=== PATIENT | male | born 1960 | race Caucasian/White ===

== ENCOUNTER 2018-04-29 15:55 | Inpatient (IN) ==
[2018-04-29] MEDS ORDERED: Sod Chloride 0.9% Inj 1,000 ML IV.SIG ONE (16:09)
[2018-04-29] MEDS ORDERED: Lidocaine 1% Inj 50 ML Vial INFILTRATN ONE (16:10)
[2018-04-29] MEDS ORDERED: Tetanus/Diphtheria Toxoid Adult Vaccine Inj 0.5 ML Vial IM ONE (16:10)
--- NOTE | 2018-04-29 16:42 | ED ---
HPI General Chief Complaint: Fall Stated Complaint: Fall Time Seen by Provider: 04/29/18 16:09 Source: patient Mode of arrival: EMS Limitations: no limitations History of Present Illness HPI Narrative: 58-year-old male with PMH of HTN, CVA with residual speech difficulties presents to the ED via EMS for evaluation after fall x2. Patient states that he was going to lunch around 1 pm, turned to go to the bathroom, leg slipped out from under him and he fell onto his right hip. He denies hitting his head or loss of consciousness. He was able to ambulate and had lunch with a friend. He endorses having a few beers while at lunch. He states that when he stood up and took a few steps to leave the restaurant he suddenly "hit the ground." He endorses hitting his head and momentary loss of consciousness. On presentation he is alert, oriented. He denies headache, dizziness, vision changes, difficulties breathing, malocclusion, back pain, neck pain, chest pain, shortness of breath, abdominal pain. He denies previous injury to the right hip. He endorses compliance with his antihypertensive medications. He denies use of blood thinners. Related Data Home Medications Medication Instructions Recorded Confirmed amlodipine 5 mg PO DAILY 04/29/18 04/29/18 losartan-hydrochlorothiazide 1 tab PO DAILY 04/29/18 04/29/18 metoprolol tartrate 25 mg PO BID 04/29/18 04/29/18 potassium chloride 20 meq PO BID 04/29/18 04/29/18 Allergies Allergy/AdvReac Type Severity Reaction Status Date / Time No Known Allergies Allergy Verified 04/29/18 16:03 Review of Systems ROS: all other systems reviewed are negative [facility] Medical History Medical History CVA (cerebral vascular accident) (Acute) Hypertension (Acute) Rt facial numbness (Acute) Surgical History Surgical History H/O arthroscopic knee surgery (Acute) Family History Family History Other Hypertension Social History Social History Substance History: No History of Abuse Second Hand Smoke Exposure: No Smoking Status: Current some day smoker Tobacco Type: Cigars How Often Do You Have a Drink Containing Alcohol: 4 or more times a week Recent Travel in [facility] within the Last 8 Weeks: No Recent Out of Country Travel within the Last 8 Weeks: No Immunization History Tetanus Immunization: >5 Years Exam Narrative Exam Narrative: GENERAL: Well-nourished, well-developed white male in no acute distress. Sitting up in the stretcher in no acute distress. SKIN: Warm and dry. There is a 3 cm laceration below the midline mandible. No active bleeding. Other thorough evaluation reveals no edema, ecchymosis, abrasion, or laceration of the skin. HEAD: Normocephalic. Atraumatic. No raccoon eyes or schulte sign. No tenderness to palpation of the skull. No bony step-offs. No malocclusion of the teeth. EYES: No scleral icterus. No injection or drainage. PERRLA. EOMI. ENT: Pearly hernandez tympanic membranes bilaterally. Nasal mucosa is moist. Oropharynx without erythema, edema or exudate. NECK: Supple, trachea midline. No JVD or lymphadenopathy. No midline tenderness to palpation. Patient retains full, active, painless range of motion of the neck. CARDIOVASCULAR: Regular rate and rhythm without murmurs, gallops, or rubs. 2+ DP and radial pulses bilaterally. RESPIRATORY: Breath sounds clear and equal bilaterally. No accessory muscle use. GASTROINTESTINAL: Abdomen soft, non-tender, nondistended. + Bowel sounds FOCUSED RIGHT LOWER EXTREMITY EXAM: Palpable distal pulses. Tender to palpation of the anterolateral aspect of the right hip. No pain elicited with internal/external rotation. No foreshortening. Patient is able to bend the knee to approximately 30 degrees. Neurovascularly intact distally. MUSCULOSKELETAL: No cyanosis, or edema. No other tenderness to palpation or limitations to range of motion of the joints of the upper and lower extremities bilaterally. NEUROLOGICAL: Awake and alert. Cranial nerves II through XII intact. Motor and sensory grossly within normal limits. 5/5 muscle strength in all muscle groups. Normal speech. BACK: Nontender without obvious deformity. No CVA tenderness. No midline tenderness. Procedures Laceration Laceration 1: Site: face Size (cm): 4 Description: linear Depth: simple, single layer Anesthetic used: lidocaine 1% Anesthesia technique:: local infiltration Amount (mL): 5 Pre-repair:: wound explored, irrigated extensively and deep structures intact Skin layer closed with: prolene Size (cm): 4-0 Number of sutures:: 4 Technique:: simple, interrupted Course Initial Documented Vital Signs Temperature 98.1 F 04/29/18 16:08 Pulse Rate 75 04/29/18 16:08 Respiratory Rate 13 04/29/18 16:08 Blood Pressure 147/73 H 04/29/18 16:08 Pulse Oximetry 100 04/29/18 16:08 Last Documented Vital Signs Temperature 98.1 F 04/29/18 16:08 Pulse Rate 75 04/29/18 18:17 Respiratory Rate 19 04/29/18 18:17 Blood Pressure 154/76 H 04/29/18 18:17 Pulse Oximetry 98 04/29/18 18:17 Medical Decision Making DEMARCO Attestation DEMARCO supervised visit: Yes Attestation: I, Dr. Goff, have reviewed the advance practice practitioner's documentation and am in agreement, met with the patient face to face, made the diagnosis, and the medical decision making was done by me. *My assessment and Findings: Patient is a 58 year old male who comes in complaining of right hip pain after a fall today. He fell twice, the second fall, he blacked out. He denies chest pain or SOB. Exam shows laceration to the chin. Tender to palpation of the right hip. Lungs CTA, heart RRR. XR shows hip fracture. Patient admitted for surgical repair. MDM Narrative Medical decision making narrative: 58-year-old male with PMH of HTN, CVA with residual speech difficulties and right-sided facial paresthesias presents the ED via EMS for evaluation after a fall onto the right hip. Patient did hit his head and had momentary loss of consciousness. On presentation he is a and O x3. He complains of hip pain but denies dizziness, vision changes, nausea or vomiting. Physical exam reveals laceration of the midline chin just below the mandible, no active bleeding. The right hip is tender to palpation of the anterior lateral aspect, no pain elicited with internal/external rotation. No foreshortening noted. Neurovascular intact distally. Tetanus immunization was updated. Laceration repair was performed. CT of the brain with no acute findings. X-ray of the hip reveals subcapital fracture. Discussed the results of the workup with the patient as well as the need for orthopedic intervention. Patient is agreeable to admission. I spoke with Dr. Hill, on-call orthopedist. She agrees to accept the patient. I spoke with Dr. menard who agrees to accept the patient to the medicine service. Please see Orth O and medicine notes for disposition. Medical Screen Exam Complete: Yes Emergency Medical Condition: Yes Differential Diagnosis Differential Diagnosis: Fall versus closed head injury versus chin laceration versus ICH versus metabolic derangement versus ACS versus hip fracture versus musculoskeletal pain versus other Lab Data Result diagrams: 04/29/18 16:15 04/29/18 16:15 Lab Results 04/29/18 04/29/18 04/29/18 Range/Units 16:15 16:15 16:15 WBC 7.8 (4.0-11.0) th/mm3 RBC 4.27 L (4.50-5.90) mil/mm3 Hgb 14.1 (13.0-17.0) gm/dL Hct 40.5 (39.0-51.0) % MCV 94.7 (80.0-100.0) fL MCH 33.0 (27.0-34.0) pg MCHC 34.8 (32.0-36.0) % RDW 14.1 (11.6-17.2) % Plt Count 284 (150-450) th/mm3 MPV 7.5 (7.0-11.0) fL Neut % (Auto) 52.8 (16.0-70.0) % Lymph % (Auto) 31.6 (9.0-44.0) % [place] % (Auto) 12.4 H (0.0-8.0) % Eos % (Auto) 2.1 (0.0-4.0) % Baso % (Auto) 1.1 (0.0-2.0) % Neut # (Auto) 4.1 (1.8-7.7) th/mm3 Lymph # (Auto) 2.5 (1.0-4.8) th/mm3 [place] # (Auto) 1.0 H (0.0-0.9) th/mm3 Eos # (Auto) 0.2 (0.0-0.4) th/mm3 Baso # (Auto) 0.1 (0.0-0.2) th/mm3 WBC Differential . Differential Comment Auto diff final PT 10.4 (9.8-11.6) sec INR 1.0 Ratio Sodium 141 (136-145) meq/L Potassium 3.7 (3.5-5.1) meq/L Chloride 106 (98-107) meq/L Carbon Dioxide 26.1 (21.0-32.0) meq/L Anion Gap 9 (5-15) meq/L BUN 13 (7-18) mg/dL Creatinine 1.65 H (0.60-1.30) mg/dL Estimated GFR 43 L (>89) mL/min Random Glucose 109 H (74-106) mg/dL Calcium 8.3 L (8.5-10.1) mg/dL Troponin I Less than 0.02 L (0.02-0.05) ng/mL Serum Alcohol (0-5) mg/dL 04/29/18 Range/Units 16:15 WBC (4.0-11.0) th/mm3 RBC (4.50-5.90) mil/mm3 Hgb (13.0-17.0) gm/dL Hct (39.0-51.0) % MCV (80.0-100.0) fL MCH (27.0-34.0) pg MCHC (32.0-36.0) % RDW (11.6-17.2) % Plt Count (150-450) th/mm3 MPV (7.0-11.0) fL Neut % (Auto) (16.0-70.0) % Lymph % (Auto) (9.0-44.0) % [place] % (Auto) (0.0-8.0) % Eos % (Auto) (0.0-4.0) % Baso % (Auto) (0.0-2.0) % Neut # (Auto) (1.8-7.7) th/mm3 Lymph # (Auto) (1.0-4.8) th/mm3 [place] # (Auto) (0.0-0.9) th/mm3 Eos # (Auto) (0.0-0.4) th/mm3 Baso # (Auto) (0.0-0.2) th/mm3 WBC Differential Differential Comment PT (9.8-11.6) sec INR Ratio Sodium (136-145) meq/L Potassium (3.5-5.1) meq/L Chloride (98-107) meq/L Carbon Dioxide (21.0-32.0) meq/L Anion Gap (5-15) meq/L BUN (7-18) mg/dL Creatinine (0.60-1.30) mg/dL Estimated GFR (>89) mL/min Random Glucose (74-106) mg/dL Calcium (8.5-10.1) mg/dL Troponin I (0.02-0.05) ng/mL Serum Alcohol 153 H (0-5) mg/dL Imaging Data Radiologist's impression: Head CT 04/29/18 16:09 CONCLUSION: 1. No acute intracranial abnormality. 2. 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 . Hip X-Ray 04/29/18 16:10 CONCLUSION: Subcapital fracture of the right hip Discharge Plan Discharge Disposition Patient Disposition: 30 Still Patient Physicians Team ED Provider: Bailee Goff ED Midlevel Provider: Magalys Tristan Primary Care Provider: Primary Care Aydee,Lea Attending Provider: Raji Issa Other Providers: Angy Hill Status ED Status: Admitted Patient
[2018-04-29 16:43] LABS: Baso # (Auto) 0.1 th/mm3 (0.0-0.2); Baso % (Auto) 1.1 % (0.0-2.0); Eos # (Auto) 0.2 th/mm3 (0.0-0.4); Eos % (Auto) 2.1 % (0.0-4.0); Hematocrit 40.5 % (39.0-51.0); Hemoglobin 14.1 gm/dL (13.0-17.0); Lymph # (Auto) 2.5 th/mm3 (1.0-4.8); Lymph % (Auto) 31.6 % (9.0-44.0); Mean Corpuscular HGB Conc 34.8 % (32.0-36.0); Mean Corpuscular Volume 94.7 fL (80.0-100.0); Mean Platelet Volume 7.5 fL (7.0-11.0); Mono % (Auto) 12.4 % (0.0-8.0); Neut # (Auto) 4.1 th/mm3 (1.8-7.7); Neut % (Auto) 52.8 % (16.0-70.0); Platelet Count 284 th/mm3 (150-450); Red Blood Count 4.27 mil/mm3 (4.50-5.90); Red Cell Distribution Width 14.1 % (11.6-17.2); White Blood Count 7.8 th/mm3 (4.0-11.0)
--- NOTE | 2018-04-29 17:05 | XR ---
EXAM DATE: 04/29/2018 4:48 PM EDT AGE/SEX: 58 years / Male INDICATIONS: Patient fell twice today. CLINICAL DATA: This is the patient's initial encounter. Patient reports that signs and symptoms have been present for 1 day and indicates a pain score of 4/10. MEDICAL/SURGICAL HISTORY: None. None. COMPARISON: No prior exams available for comparison. FINDINGS: Subcapital fracture of the right hip. Femoral acetabular articulation is preserved. CONCLUSION: Subcapital fracture of the right hip Electronically signed by: Chris Branham MD 04/29/2018 5:04 PM EDT
--- NOTE | 2018-04-29 17:05 | CT ---
EXAM DATE: 04/29/2018 5:00 PM EDT AGE/SEX: 58 years / Male INDICATIONS: Trauma, fall, laceration to chin. CLINICAL DATA: This is the patient's initial encounter. Patient reports that signs and symptoms have been present for 1 day and indicates a pain score of 9/10. MEDICAL/SURGICAL HISTORY: Cerebrovascular disease. Hypertension. None. RADIATION DOSE: 41.17 CTDI (mGy) COMPARISON: No prior exams available for comparison. TECHNIQUE: CT of the head without contrast. Using automated exposure control and adjustment of the mA and/or kV according to patient size, radiation dose was kept as low as reasonably achievable to ob tain optimal diagnostic quality images. DICOM format image data is available electronically for revi ew and comparison. FINDINGS: Cerebrum: The ventricles are normal for age. No evidence of midline shift, mass lesion, hemorrhage or acute infarction. No extraaxial fluid collections are seen. Posterior Fossa: Cystic structure in the right posterior fossa likely negative cisterna magna or arac hnoid cyst The cerebellum and brainstem are intact. The 4th ventricle is midline. The cerebellopon jimi angle is unremarkable. Extracranial: The visualized portion of the orbits is intact. Skull: The calvaria is intact. No evidence of skull fracture. CONCLUSION: 1. No acute intracranial abnormality. 2. 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 . Electronically signed by: Raji Blackburn MD 04/29/2018 5:04 PM EDT
[2018-04-29 17:08] LABS: Anion Gap 9 meq/L (5-15); Blood Urea Nitrogen 13 mg/dL (7-18); Calcium 8.3 mg/dL (8.5-10.1); Carbon Dioxide 26.1 meq/L (21.0-32.0); Chloride 106 meq/L (98-107); Glomerular Filtration Rate 43 mL/min (>89); Glucose,Random 109 mg/dL (74-106); Potassium 3.7 meq/L (3.5-5.1); Sodium 141 meq/L (136-145)
[2018-04-29 17:13] LABS: Prothrombin Time 10.4 sec (9.8-11.6)
[2018-04-29] MEDS ORDERED: Acetaminophen 325 MG Tablet PO PRN (17:48)
[2018-04-29] MEDS ORDERED: Morphine Sulfate Inj 2 MG/ML Vial IV.PUSH PRN (17:51)
[2018-04-29] MEDS ORDERED: Naloxone Inj 0.4 MG/ML Vial IV.PUSH PRN (17:51)
[2018-04-29] MEDS ORDERED: LORazepam 1 MG Tablet PO PRN (17:52)
[2018-04-29] MEDS ORDERED: Haloperidol Inj 5 MG/ML Ampul IV.PUSH PRN ×2 (17:52→19:15)
--- NOTE | 2018-04-29 18:04 | P.HP ---
History of Present Illness Primary Care Physician: No Primary Care Physician Chief Complaint: Right hip pain History of Present Illness: 58-year-old man with a past medical history of hypertension, CVA with residual speech difficulties was brought to the ED by EMS for evaluation of right status post mechanical falls x2, which happened a local restaurant today. Patient states, he has gone out to eat and while in a restaurant decided to walk to the bathroom when his leg slipped out from under him and he fell onto his right hip. The pain at a time was rated over 4 in intensity however patient was able to get back to his seat and proceeded with lunch which lasted over one hour and a half. However as patient was getting ready to step out against slipped and fallen on his right side. For atrial dose for patient denies any head trauma or loss of consciousness. When patient was brought to the ED, and AP x-rays order from subcapital fracture of the right hip for which orthopedic surgery has been consulted. Abnormal lab include alcohol of 153, however patient denies any significant history of alcohol abuse. Creatinine slightly elevated to 1.65. Otherwise patient denies any chest pain or shortness of breath. He has no GI bleed. Inpatient Certification: I certify that the inpatient services were ordered in accordance with Medicare regulations governing the order. This includes certification that hospital inpatient services are reasonable and necessary and in the case of services not specified as inpatient-only under 42 CFR 419.22(n), that they are appropriately provided as inpatient services in accordance to with the 2-midnight benchmark under 43 CFR 412.3(e) Estimated Total Length of Stay (Days): 2 Plans for Post Hospital Care: SNF Review of Systems All other systems reviewed negative except as stated in HPI PMFSH - History History Provided By: Patient - Medical History Medical History: Medical History (Last Reviewed 04/30/18 @ 11:40 by Terrell Valenzuela) CVA (cerebral vascular accident) Hypertension Rt facial numbness - Surgical History Surgical History: Surgical History (Last Updated 04/29/18 @ 17:59 by Raji Issa MD) H/O arthroscopic knee surgery - Family History Family History: Family History (Last Updated 04/29/18 @ 18:00 by Raji Issa MD) Other Hypertension - Tobacco History Second Hand Smoke Exposure: No Tobacco Use In Past 30 Days: No Smoking Status: Current some day smoker Tobacco Type: Cigars - Alcohol History How Often Do You Have a Drink Containing Alcohol: 4 or more times a week - Substance Use History Substance History: No History of Abuse - Travel History Recent Travel in the [place] Within the Last 8 Weeks: No Recent Travel Out of the Country Within the Last 8 Weeks: No - Immunization History Tetanus Immunization: >5 Years Medications and Allergies Active Medications: Active Medications Sodium Chloride (Ns Flush) 2 ml IV.FLUSH PRN PRN PRN Reason: FLUSH AFTER USING IV ACCESS Allergies Allergy/AdvReac Type Severity Reaction Status Date / Time No Known Allergies Allergy Verified 04/29/18 16:03 Home Medications Medication Instructions Recorded Confirmed Type amlodipine 5 mg PO DAILY 04/29/18 04/29/18 History losartan-hydrochlorothiazide 1 tab PO DAILY 04/29/18 04/29/18 History metoprolol tartrate 25 mg PO BID 04/29/18 04/29/18 History potassium chloride 20 meq PO BID 04/29/18 04/29/18 History Exam Vital signs: Vital Signs 04/29/18 16:08 04/29/18 16:22 Temperature 98.1 F Pulse Rate 75 Respiratory Rate 13 Blood Pressure 147/73 H Pulse Oximetry 100 99 Intake & Output 04/28/18 04/29/18 04/29/18 18:59 06:59 18:59 Intake Total 1000 / 1000 Balance 1000 / 1000 Weight 92.986 kg Intake: IV 1000 / 1000 NS Inj 1,000 ML @ Wide Open IV. 1000 / 1000 SIG BOLUS ONE Rx#:[id number] Narrative: GENERAL: NAD SKIN: Warm and dry. HEAD: Atraumatic. Normocephalic. EYES: Pupils equal and round. No scleral icterus. No injection or drainage. ENT: No nasal bleeding or discharge. Mucous membranes pink and moist. NECK: Trachea midline. No JVD. CARDIOVASCULAR: Regular rate and rhythm. RESPIRATORY: No accessory muscle use. Clear to auscultation. Breath sounds equal bilaterally. GASTROINTESTINAL: Abdomen soft, non-tender, nondistended. Hepatic and splenic margins not palpable. MUSCULOSKELETAL: Extremities without clubbing, cyanosis, or edema. No obvious deformities. NEUROLOGICAL: Awake and alert. No obvious cranial nerve deficits. Motor grossly within normal limits. Five out of 5 muscle strength in the left arms and legs. Limited ROM RLE, which is internally rotated. PSYCHIATRIC: Appropriate mood and affect; insight and judgment normal. Results - Labs CBC & Chem 7: 04/30/18 04:15 04/30/18 04:15 Labs: Laboratory Results - last 24 hr 04/29/18 04/29/18 04/29/18 16:15 16:15 16:15 WBC 7.8 RBC 4.27 L Hgb 14.1 Hct 40.5 MCV 94.7 MCH 33.0 MCHC 34.8 RDW 14.1 Plt Count 284 MPV 7.5 Neut % (Auto) 52.8 Lymph % (Auto) 31.6 [place] % (Auto) 12.4 H Eos % (Auto) 2.1 Baso % (Auto) 1.1 Neut # (Auto) 4.1 Lymph # (Auto) 2.5 [place] # (Auto) 1.0 H Eos # (Auto) 0.2 Baso # (Auto) 0.1 WBC Differential . Differential Comment Auto diff final PT 10.4 INR 1.0 Sodium 141 Potassium 3.7 Chloride 106 Carbon Dioxide 26.1 Anion Gap 9 BUN 13 Creatinine 1.65 H Estimated GFR 43 L Random Glucose 109 H Calcium 8.3 L Troponin I Less than 0.02 L Serum Alcohol 04/29/18 16:15 WBC RBC Hgb Hct MCV MCH MCHC RDW Plt Count MPV Neut % (Auto) Lymph % (Auto) [place] % (Auto) Eos % (Auto) Baso % (Auto) Neut # (Auto) Lymph # (Auto) [place] # (Auto) Eos # (Auto) Baso # (Auto) WBC Differential Differential Comment PT INR Sodium Potassium Chloride Carbon Dioxide Anion Gap BUN Creatinine Estimated GFR Random Glucose Calcium Troponin I Serum Alcohol 153 H - Imaging Impressions Head CT 04/29/18 16:09 CONCLUSION: 1. No acute intracranial abnormality. 2. 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 . Hip X-Ray 04/29/18 16:10 CONCLUSION: Subcapital fracture of the right hip Caprini VTE Risk Assessment Caprini VTE Risk Assessment: No/Low Risk (score <= 1) Caprini Risk Assessment Model: Point Value = 1 Point Value = 2 Point Value = 3 Point Value = 5 Age 41-60 Minor surgery BMI > 25 kg/m2 Swollen legs Varicose veins or History of unexplained or recurrent spontaneous Oral contraceptives or hormone replacement Sepsis (< 1 month) Serious lung disease, including pneumonia (< 1 month) Abnormal pulmonary function Acute myocardial infarction Congestive heart failure (< 1 month) History of inflammatory bowel disease Medical patient at bed rest Age 61-74 Arthroscopic surgery Major open surgery (> 45 min) Laparoscopic surgery (> 45 min) Malignancy Confined to bed (> 72 hours) Immobilizing plaster cast Central venous access Age >= 75 History of VTE Family history of VTE Factor V Leiden Prothrombin [id number] Lupus anticoagulant Anticardiolipin antibodies Elevated serum homocysteine Heparin-induced thrombocytopenia Other congenital or acquired thrombophilia Stroke (< 1 month) Elective arthroplasty Hip, pelvis, or leg fracture Acute spinal cord injury (< 1 month) Prophylaxis Regimen: Total Risk Factor Score Risk Level Prophylaxis Regimen 0-1 Low Early ambulation 2 Moderate Order ONE of the following: *Sequential Compression Device (SCD) *Heparin 5000 units SQ BID 3-4 Higher Order ONE of the following medications: *Heparin 5000 units SQ TID *Enoxaparin/Lovenox 40 mg SQ daily (WT < 150 kg, CrCl > 30 mL/min) *Enoxaparin/Lovenox 30 mg SQ daily (WT < 150 kg, CrCl > 10-29 mL/min) *Enoxaparin/Lovenox 30 mg SQ BID (WT < 150 kg, CrCl > 30 mL/min) AND/OR *Sequential Compression Device (SCD) 5 or more Highest Order ONE of the following medications: *Heparin 5000 units SQ TID (Preferred with Epidurals) *Enoxaparin/Lovenox 40 mg SQ daily (WT < 150 kg, CrCl > 30 mL/min) *Enoxaparin/Lovenox 30 mg SQ daily (WT < 150 kg, CrCl > 10-29 mL/min) *Enoxaparin/Lovenox 30 mg SQ BID (WT < 150 kg, CrCl > 30 mL/min) AND *Sequential Compression Device (SCD) Assessment and Plan - Plan 58-year-old man with Right hip fracture Hip x-ray noted and reviewed by me with finding of subcapital fracture of the right hip Place right lower extremity in traction Orthopedic surgery has been consulted Pain management accordingly with parenteral meds DVT prophylaxis postprocedure per orthopedic surgery PT consult postprocedure for eval and treat Mechanical fall Head CT noted and reviewed by me without any intracranial abnormalities Place Fall precautions Elevated alcohol level Although, patient denies any history of alcohol abuse, will start CIWA protocol Patient was extensively counseled against alcohol cessation History of hypertension Will resume Norvasc, beta-arik and hold HCTZ-lisinopril Acute renal injury Prerenal Gentle IV fluid hydration, monitor BUN and creatinine History of CVA Chronic DVT prophylaxis: Postprocedure per orthopedic surgery
[2018-04-29] MEDS: Metoprolol Tartrate 25 MG Tablet PO SCH (21:50)
[2018-04-30] MEDS ORDERED: Chlorhexidine Gluconate 2% 1 Pack (2 Cloths) TOPICAL ONE (05:03)
[2018-04-30 05:07] LABS: Baso # (Auto) 0.1 th/mm3 (0.0-0.2); Baso % (Auto) 0.7 % (0.0-2.0); Eos # (Auto) 0.1 th/mm3 (0.0-0.4); Eos % (Auto) 0.9 % (0.0-4.0); Hematocrit 39.3 % (39.0-51.0); Hemoglobin 13.3 gm/dL (13.0-17.0); Mean Corpuscular HGB Conc 33.9 % (32.0-36.0); Mean Corpuscular Hemoglobin 32.2 pg (27.0-34.0); Mean Corpuscular Volume 95.1 fL (80.0-100.0); Mean Platelet Volume 7.4 fL (7.0-11.0); Mono # (Auto) 1.1 th/mm3 (0.0-0.9); Mono % (Auto) 11.9 % (0.0-8.0); Neut # (Auto) 5.9 th/mm3 (1.8-7.7); Neut % (Auto) 64.5 % (16.0-70.0); Platelet Count 231 th/mm3 (150-450); Red Blood Count 4.13 mil/mm3 (4.50-5.90); White Blood Count 9.1 th/mm3 (4.0-11.0)
[2018-04-30 05:37] LABS: Alanine Aminotransferase 25 U/L (12-78); Albumin 3.3 g/dL (3.4-5.0); Anion Gap 10 meq/L (5-15); Aspartate Aminotransferase 27 U/L (15-37); Blood Urea Nitrogen 11 mg/dL (7-18); Calcium 8.5 mg/dL (8.5-10.1); Carbon Dioxide 24.9 meq/L (21.0-32.0); Chloride 109 meq/L (98-107); Glomerular Filtration Rate 61 mL/min (>89); Glucose,Random 93 mg/dL (74-106); Potassium 3.8 meq/L (3.5-5.1); Sodium 144 meq/L (136-145)
[2018-04-30 05:39] LABS: Alkaline Phosphatase 54 U/L (45-117); Total Protein 6.4 g/dL (6.4-8.2)
[2018-04-30] MEDS ORDERED: Sodium Chlor 0.9% Inj 500 ML IV.SIG SCH (06:00)
[2018-04-30] MEDS: Metoprolol Tartrate 25 MG Tablet PO SCH ×2 (08:00→20:18)
[2018-04-30] MEDS: amLODIPine 5 MG Tablet PO SCH (08:00)
--- NOTE | 2018-04-30 08:19 | P.PNOP ---
Subjective Interval history: Ric was in a restaurant when he slipped and fell and landed directly onto his right hip. He hobbled off to the bathroom and came back and completed his meal. After the meal he went to stand up and had significant pain and apparently had a syncopal episode in which he fell and hit the chair well with his chin. When he came to he was unable to ambulate and bear weight. He has no other orthopedic complaints other than his right hip <JocelyneTerrell - Last Filed: 04/30/18 08:14> Physical Exam Vital signs: Vital Signs 04/29/18 16:08 04/29/18 16:22 04/29/18 18:17 Temperature 98.1 F Pulse Rate 75 75 Respiratory Rate 13 19 Blood Pressure 147/73 H 154/76 H Pulse Oximetry 100 99 98 04/29/18 18:54 04/29/18 20:00 04/29/18 20:32 Temperature 99.5 F 98.7 F Pulse Rate 93 H 93 H Respiratory Rate 18 20 20 Blood Pressure 182/86 H 164/82 H Pulse Oximetry 100 96 04/30/18 00:00 04/30/18 00:30 04/30/18 04:00 Temperature 98.6 F 98.9 F Pulse Rate 85 97 H Respiratory Rate 20 17 20 Blood Pressure 158/86 H 171/82 H Pulse Oximetry 96 97 Intake & Output 04/29/18 04/30/18 04/30/18 18:59 06:59 18:59 Intake Total 1000 / 1000 0 / 0 Output Total 1999 Balance 1000 / 1000 -1999 Weight 92.986 kg 93 kg Intake: IV 1000 / 1000 NS Inj 1,000 ML @ Wide Open IV. 1000 / 1000 SIG BOLUS ONE Rx#:[id number] Oral 0 / 0 Output: Urine 1999 Other: Date of Last Bowel Movement 04/28/18 Weight On Admission 92.986 kg Narrative: Ric is a 58-year-old male is well-nourished well-developed in no acute distress. He is alert and oriented to person place and time. Right lower extremity: Pain to palpation of hip. Pain with any movement of the hip. skin is intact. No pain with knee or ankle range of motion. He has active dorsiflexion and plantarflexion of the foot. Bilateral upper extremities: Full range of motion neurovascular intact left lower extremity: Full range of motion and neurovascularly intact <Terrell Casanova - Last Filed: 04/30/18 08:14> Vital signs: Vital Signs 04/29/18 16:08 04/29/18 16:22 04/29/18 18:17 Temperature 98.1 F Pulse Rate 75 75 Respiratory Rate 13 19 Blood Pressure 147/73 H 154/76 H Pulse Oximetry 100 99 98 04/29/18 18:54 04/29/18 20:00 04/29/18 20:32 Temperature 99.5 F 98.7 F Pulse Rate 93 H 93 H Respiratory Rate 18 20 20 Blood Pressure 182/86 H 164/82 H Pulse Oximetry 100 96 04/30/18 00:00 04/30/18 00:30 04/30/18 04:00 Temperature 98.6 F 98.9 F Pulse Rate 85 97 H Respiratory Rate 20 17 20 Blood Pressure 158/86 H 171/82 H Pulse Oximetry 96 97 04/30/18 08:00 Temperature 98.7 F Pulse Rate 74 Respiratory Rate 20 Blood Pressure 175/86 H Pulse Oximetry 98 Intake & Output 04/29/18 04/30/18 04/30/18 18:59 06:59 18:59 Intake Total 1000 / 1000 0 / 0 Output Total 1999 Balance 1000 / 1000 -1999 Weight 92.986 kg 93 kg Intake: IV 1000 / 1000 NS Inj 1,000 ML @ Wide Open IV. 1000 / 1000 SIG BOLUS ONE Rx#:[id number] Oral 0 / 0 Output: Urine 1999 Other: Date of Last Bowel Movement 04/28/18 Weight On Admission 92.986 kg <Casey Henley - Last Filed: 04/30/18 10:35> Results - Labs CBC & Chem 7: 04/30/18 04:15 04/30/18 04:15 Laboratory Results - last 24 hr 04/29/18 04/29/18 04/29/18 16:15 16:15 16:15 WBC 7.8 RBC 4.27 L Hgb 14.1 Hct 40.5 MCV 94.7 MCH 33.0 MCHC 34.8 RDW 14.1 Plt Count 284 MPV 7.5 Neut % (Auto) 52.8 Lymph % (Auto) 31.6 Lane % (Auto) 12.4 H Eos % (Auto) 2.1 Baso % (Auto) 1.1 Neut # (Auto) 4.1 Lymph # (Auto) 2.5 Lane # (Auto) 1.0 H Eos # (Auto) 0.2 Baso # (Auto) 0.1 WBC Differential . Differential Comment Auto diff final PT 10.4 INR 1.0 Sodium 141 Potassium 3.7 Chloride 106 Carbon Dioxide 26.1 Anion Gap 9 BUN 13 Creatinine 1.65 H Estimated GFR 43 L Random Glucose 109 H Calcium 8.3 L Total Bilirubin AST ALT Alkaline Phosphatase Troponin I Less than 0.02 L Total Protein Albumin Serum Alcohol 04/29/18 04/30/18 04/30/18 16:15 04:15 04:15 WBC 9.1 RBC 4.13 L Hgb 13.3 Hct 39.3 MCV 95.1 MCH 32.2 MCHC 33.9 RDW 14.0 Plt Count 231 MPV 7.4 Neut % (Auto) 64.5 Lymph % (Auto) 22.0 Lane % (Auto) 11.9 H Eos % (Auto) 0.9 Baso % (Auto) 0.7 Neut # (Auto) 5.9 Lymph # (Auto) 2.0 Lane # (Auto) 1.1 H Eos # (Auto) 0.1 Baso # (Auto) 0.1 WBC Differential . Differential Comment Auto diff final PT INR Sodium 144 Potassium 3.8 Chloride 109 H Carbon Dioxide 24.9 Anion Gap 10 BUN 11 Creatinine 1.21 Estimated GFR 61 L Random Glucose 93 Calcium 8.5 Total Bilirubin 0.5 AST 27 ALT 25 Alkaline Phosphatase 54 Troponin I Total Protein 6.4 Albumin 3.3 L Serum Alcohol 153 H - Imaging Impressions Head CT 04/29/18 16:09 CONCLUSION: 1. No acute intracranial abnormality. 2. 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 . Hip X-Ray 04/29/18 16:10 CONCLUSION: Subcapital fracture of the right hip <Terrell Casanova - Last Filed: 04/30/18 08:14> - Labs CBC & Chem 7: 04/30/18 04:15 04/30/18 04:15 Laboratory Results - last 24 hr 04/29/18 04/29/18 04/29/18 16:15 16:15 16:15 WBC 7.8 RBC 4.27 L Hgb 14.1 Hct 40.5 MCV 94.7 MCH 33.0 MCHC 34.8 RDW 14.1 Plt Count 284 MPV 7.5 Neut % (Auto) 52.8 Lymph % (Auto) 31.6 Lane % (Auto) 12.4 H Eos % (Auto) 2.1 Baso % (Auto) 1.1 Neut # (Auto) 4.1 Lymph # (Auto) 2.5 Lane # (Auto) 1.0 H Eos # (Auto) 0.2 Baso # (Auto) 0.1 WBC Differential . Differential Comment Auto diff final PT 10.4 INR 1.0 Sodium 141 Potassium 3.7 Chloride 106 Carbon Dioxide 26.1 Anion Gap 9 BUN 13 Creatinine 1.65 H Estimated GFR 43 L Random Glucose 109 H Calcium 8.3 L Total Bilirubin AST ALT Alkaline Phosphatase Troponin I Less than 0.02 L Total Protein Albumin Serum Alcohol 04/29/18 04/30/18 04/30/18 16:15 04:15 04:15 WBC 9.1 RBC 4.13 L Hgb 13.3 Hct 39.3 MCV 95.1 MCH 32.2 MCHC 33.9 RDW 14.0 Plt Count 231 MPV 7.4 Neut % (Auto) 64.5 Lymph % (Auto) 22.0 Lane % (Auto) 11.9 H Eos % (Auto) 0.9 Baso % (Auto) 0.7 Neut # (Auto) 5.9 Lymph # (Auto) 2.0 Lane # (Auto) 1.1 H Eos # (Auto) 0.1 Baso # (Auto) 0.1 WBC Differential . Differential Comment Auto diff final PT INR Sodium 144 Potassium 3.8 Chloride 109 H Carbon Dioxide 24.9 Anion Gap 10 BUN 11 Creatinine 1.21 Estimated GFR 61 L Random Glucose 93 Calcium 8.5 Total Bilirubin 0.5 AST 27 ALT 25 Alkaline Phosphatase 54 Troponin I Total Protein 6.4 Albumin 3.3 L Serum Alcohol 153 H - Imaging Impressions Head CT 04/29/18 16:09 CONCLUSION: 1. No acute intracranial abnormality. 2. 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 . Hip X-Ray 04/29/18 16:10 CONCLUSION: Subcapital fracture of the right hip <Casey Henley - Last Filed: 04/30/18 10:35> Assessment and Plan - Assessment and Plan Right femoral neck fracture mildly displaced on x-ray N.p.o. Surgery this morning with Dr. Henley. We will plan on percutaneous pinning of the right hip. If upon x-ray in the operating room the fracture is displaced significantly we will plan on progressing toward a right total hip arthroplasty. If there is significant displacement of the femoral neck blood supply will be interrupted to the femoral head. Sign consents <Terrell Casanova - Last Filed: 04/30/18 08:14> - Assessment and Plan Postop day #0 status post right hip pinning Physical therapy--toe-touch weightbearing SCDs/NORRIS brito/German Case management consult for discharge planning--home versus SNF <Casey Henley - Last Filed: 04/30/18 10:35>
--- NOTE | 2018-04-30 08:45 | P.CONOP ---
[facility] Orthopedics Consult Note - [facility] Consult date: 04/30/18 Chief complaint: Right hip fracture Narrative: Ric is a 58-year-old male. He has multiple medical problems including hypertension and history of CVA. He states that he was at a local restaurant yesterday. He is wearing boots. It has been raining outside. He states that there was an area where the floor was wet and slippery. He was walking to the bathroom when he fell. He landed on his right hip. He was initially able to stand and ambulate. He got back to a stable and had lunch. As he was getting up from the table after lunch he fell again secondary to right hip pain. At that point he had more intense right hip pain. He was in the emergency room where x-rays revealed a right femoral neck fracture. He is currently awake and alert. He denies dizziness, syncope, or loss of consciousness. His hip pain is worse with movement or weightbearing. Review of Systems Patient denies fevers, chills, weight loss, headache, visual changes, hearing loss, chest pain, palpitations, shortness of breath, nausea, vomiting, no urinary changes, diarrhea, bowel changes, neck pain, back pain, skin rashes, weakness of extremities, easy bleeding, enlarged lymph nodes, numbness of extremities, anxiety, or depression. He complains of right hip pain Patient's social history, past medical history, and family history were reviewed on chart and with patient. [facility] - History History Provided By: Patient - Medical History Medical History: Medical History (Last Reviewed 04/30/18 @ 08:42 by Casey Henley MD) CVA (cerebral vascular accident) Hypertension Rt facial numbness - Surgical History Surgical History: Surgical History (Last Reviewed 04/30/18 @ 08:42 by Casey Henley MD) H/O arthroscopic knee surgery - Family History Family History: Family History (Last Reviewed 04/30/18 @ 08:42 by Casey Henley MD) Other Hypertension - Social History I have reviewed the patient's Social History: Yes - Tobacco History Second Hand Smoke Exposure: Yes Tobacco Use In Past 30 Days: Yes Smoking Status: Current some day smoker Tobacco Type: Cigars - Alcohol History How Often Do You Have a Drink Containing Alcohol: 2 to 3 times a week - Substance Use History Substance History: No History of Abuse - Travel History Recent Travel in the [facility] Within the Last 8 Weeks: No Recent Travel Out of the Country Within the Last 8 Weeks: No - Immunization History Tetanus Immunization: Unsure Hx Influenza Vaccine This Season: No Medications and Allergies Active Medications: Active Medications Acetaminophen (Tylenol) 650 mg PO Q4H PRN PRN Reason: Temp > 100.4 Last Admin: 04/29/18 21:51 Dose: 650 mg Hydrocodone Bitart/Acetaminophen (Stanton 5/325) 1 tab PO Q4H PRN PRN Reason: PAIN SCALE 3 TO 5 Hydrocodone Bitart/Acetaminophen (St[place] 7.5/325) 1 tab PO Q4H PRN PRN Reason: PAIN SCALE 6 TO 10 Al Hydroxide/Mg Hydroxide (Milk Of Magnesia Liq) 30 ml PO Q12H PRN PRN Reason: Mild Constipation Amlodipine Besylate (Norvasc) 5 mg PO DAILY ALEXI Last Admin: 04/30/18 08:00 Dose: 5 mg Enalaprilat (Vasotec Inj) 2.5 mg IV.PUSH Q6H PRN PRN Reason: SBP>160, DBP>90 Last Admin: 04/30/18 04:27 Dose: 2.5 mg Flumazenil (Romazecon Inj) 0.2 mg IV.PUSH Q1M PRN PRN Reason: OVERSEDATION Haloperidol Lactate (Haldol Inj) 1 mg IV.PUSH Q15M PRN PRN Reason: for severe agitation Lactated Ringer's (Lr 1000 Ml Inj) 1,000 mls @ 70 mls/hr IV.CONT .[id number] [facility] Last Admin: 04/30/18 08:17 Dose: 70 mls/hr Lactated Ringer's (Lr 1000 Ml Inj) 1,000 mls @ 30 mls/hr IV.SIG .Q24H ALEXI Stop: 05/01/18 05:14 Sodium Chloride (Ns Inj) 500 mls @ 30 mls/hr IV.SIG .Q10H ALEXI Tranexamic Acid 1,395 mg/ (Sodium Chloride) 113.95 mls @ 200 mls/hr IV.SIG ONCE ALEXI Stop: 04/30/18 15:00 Influenza Virus Vaccine (Fluarix (Quad) Vaccine Inj) 0.5 ml IM .ONCE ONE Stop: 04/30/18 09:01 Lorazepam (Ativan) 1 mg PO Q4H PRN PRN Reason: for CIWA 8-10 Lorazepam (Ativan) 2 mg PO Q2H PRN PRN Reason: for CIWA 11-14 Lorazepam (Ativan Inj) 2 mg IV.PUSH Q2H PRN PRN Reason: for CIWA 11-14 Lorazepam (Ativan Inj) 2 mg IV.PUSH Q1H PRN PRN Reason: for CIWA 15-20 Lorazepam (Ativan Inj) 2 mg IV.PUSH Q15M PRN PRN Reason: for CIWA > 20 Lorazepam (Ativan Inj) 1 mg IV.PUSH Q4H PRN PRN Reason: for CIWA 8-10 Metoprolol Tartrate (Lopressor) 25 mg PO BID ALEXI Last Admin: 04/30/18 08:00 Dose: 25 mg Morphine Sulfate (Morphine Inj) 2 mg IV.PUSH Q3H PRN PRN Reason: BREAKTHROUGH PAIN Naloxone HCl (Narcan Inj) 0.4 mg IV.PUSH UNSCH PRN PRN Reason: SEE LABEL COMMENTS Ondansetron HCl (Zofran Inj) 4 mg IV.PUSH Q6H PRN PRN Reason: NAUSEA OR VOMITING Sodium Chloride (Ns Flush) 2 ml IV.FLUSH PRN PRN PRN Reason: FLUSH AFTER USING IV ACCESS Allergies Allergy/AdvReac Type Severity Reaction Status Date / Time No Known Allergies Allergy Verified 04/29/18 16:03 Home Medications Medication Instructions Recorded Confirmed Type amlodipine 5 mg PO DAILY 04/29/18 04/29/18 History losartan-hydrochlorothiazide 1 tab PO DAILY 04/29/18 04/29/18 History metoprolol tartrate 25 mg PO BID 04/29/18 04/29/18 History potassium chloride 20 meq PO BID 04/29/18 04/29/18 History Exam Vital signs: Vital Signs 04/29/18 16:08 04/29/18 16:22 04/29/18 18:17 Temperature 98.1 F Pulse Rate 75 75 Respiratory Rate 13 19 Blood Pressure 147/73 H 154/76 H Pulse Oximetry 100 99 98 04/29/18 18:54 04/29/18 20:00 04/29/18 20:32 Temperature 99.5 F 98.7 F Pulse Rate 93 H 93 H Respiratory Rate 18 20 20 Blood Pressure 182/86 H 164/82 H Pulse Oximetry 100 96 04/30/18 00:00 04/30/18 00:30 04/30/18 04:00 Temperature 98.6 F 98.9 F Pulse Rate 85 97 H Respiratory Rate 20 17 20 Blood Pressure 158/86 H 171/82 H Pulse Oximetry 96 97 04/30/18 08:00 Temperature 98.7 F Pulse Rate 74 Respiratory Rate 20 Blood Pressure 175/86 H Pulse Oximetry 98 Intake & Output 04/29/18 04/30/18 04/30/18 18:59 06:59 18:59 Intake Total 1000 / 1000 0 / 0 Output Total 1999 Balance 999 / 999 -1999 Weight 92.986 kg 93 kg Intake: IV 1000 / 1000 NS Inj 1,000 ML @ Wide Open IV. 1000 / 1000 SIG BOLUS ONE Rx#:[id number] Oral 0 / 0 Output: Urine 1999 Other: Date of Last Bowel Movement 04/28/18 Weight On Admission 92.986 kg Narrative: Ric is a 58-year-old male. General: Awake and alert. No acute distress. Appears well-developed well- nourished Head: Normocephalic, atraumatic pupils are equal Neck: Soft, nontender, trachea midline Abdomen: Soft, nondistended Examination of right arm reveals no pain or deformity with shoulder, elbow, or wrist motion. Skin is intact. Radial pulse is palpable. Normal capillary refill in fingers. Sensation is intact in radial, ulnar, and median nerve distributions. Business Analyst Manager strength is +5. No lymphadenopathy noted. Examination of left arm reveals no pain or deformity with shoulder, elbow, or wrist motion. Skin is intact. Radial pulse is palpable. Normal capillary refill in fingers. Sensation is intact in radial, ulnar, and median nerve distributions. Business Analyst Manager strength is +5. No lymphadenopathy noted. Examination of left lower extremity reveals no pain or deformity with hip, knee , or ankle motion. Skin is intact. Sensation is intact in left foot. Dorsalis pedis pulse is palpable. Normal capillary refill and feet. Thigh and calf compartments are soft. No lymphadenopathy noted. +5 strength of ankle dorsiflexion and plantarflexion. Examination of right lower extremity reveals pain with any hip motion. He has no tenderness around his knee or ankle. Skin is intact. Sensation is intact in right foot. Dorsalis pedis pulse is palpable. Normal capillary refill and feet. Thigh and calf compartments are soft. No lymphadenopathy noted. +5 strength of ankle dorsiflexion and plantarflexion. Results - Labs Result Diagrams: 04/30/18 04:15 04/30/18 04:15 Labs: Laboratory Results - last 24 hr 04/29/18 04/29/18 04/29/18 16:15 16:15 16:15 WBC 7.8 RBC 4.27 L Hgb 14.1 Hct 40.5 MCV 94.7 MCH 33.0 MCHC 34.8 RDW 14.1 Plt Count 284 MPV 7.5 Neut % (Auto) 52.8 Lymph % (Auto) 31.6 [place] % (Auto) 12.4 H Eos % (Auto) 2.1 Baso % (Auto) 1.1 Neut # (Auto) 4.1 Lymph # (Auto) 2.5 [place] # (Auto) 1.0 H Eos # (Auto) 0.2 Baso # (Auto) 0.1 WBC Differential . Differential Comment Auto diff final PT 10.4 INR 1.0 Sodium 141 Potassium 3.7 Chloride 106 Carbon Dioxide 26.1 Anion Gap 9 BUN 13 Creatinine 1.65 H Estimated GFR 43 L Random Glucose 109 H Calcium 8.3 L Total Bilirubin AST ALT Alkaline Phosphatase Troponin I Less than 0.02 L Total Protein Albumin Serum Alcohol 04/29/18 04/30/18 04/30/18 16:15 04:15 04:15 WBC 9.1 RBC 4.13 L Hgb 13.3 Hct 39.3 MCV 95.1 MCH 32.2 MCHC 33.9 RDW 14.0 Plt Count 231 MPV 7.4 Neut % (Auto) 64.5 Lymph % (Auto) 22.0 [place] % (Auto) 11.9 H Eos % (Auto) 0.9 Baso % (Auto) 0.7 Neut # (Auto) 5.9 Lymph # (Auto) 2.0 [place] # (Auto) 1.1 H Eos # (Auto) 0.1 Baso # (Auto) 0.1 WBC Differential . Differential Comment Auto diff final PT INR Sodium 144 Potassium 3.8 Chloride 109 H Carbon Dioxide 24.9 Anion Gap 10 BUN 11 Creatinine 1.21 Estimated GFR 61 L Random Glucose 93 Calcium 8.5 Total Bilirubin 0.5 AST 27 ALT 25 Alkaline Phosphatase 54 Troponin I Total Protein 6.4 Albumin 3.3 L Serum Alcohol 153 H - Diagnostic results Imaging: Impressions Head CT 04/29/18 16:09 CONCLUSION: 1. No acute intracranial abnormality. 2. 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 . Hip X-Ray 04/29/18 16:10 CONCLUSION: Subcapital fracture of the right hip Hip x-ray: report reviewed, image reviewed Assessment and Plan - Assessment and Plan Ric had a fall yesterday resulting in partially displaced right femoral neck fracture. Treatment options were discussed with him. I discussed with him the possibility of open reduction internal fixation versus possible total hip arthroplasty. I explained to him that I will be prepared for both options during surgery. If the fracture lines up into appropriate alignment, I will plan on fixing the fracture with screws. If the fracture does not reduce appropriately, I will plan on total hip arthroplasty. The risk and benefits of both were discussed with patient. All questions were answered. The risk and benefits of surgery were discussed in depth with patient. The risk of surgery include bleeding, infection, injuries to arteries, nerves, or blood vessels, infection, avascular necrosis, need for hip replacement, wound complications, leg length discrepancy, hip dislocation, trochanteric bursitis, painful hardware, and need for further surgery. I also discussed medical complications including blood clots, pneumonia, stroke, heart attack, and . Informed consent was obtained and all questions were answered. N.p.o.--plan on surgery this morning Calcium and vitamin D supplementation Physical therapy consult Follow-up with Dr. Henley in 2 weeks Monisha, German Clark A mid-level provider in my office (nurse practitioner or physician assistant community manager) may see this patient on follow-up visits and continue to implement the objectives of this plan including: Starting or adjusting medications, injections , cast application, orthotics, brace application, physical therapy, radiological studies (including x-ray, MRI, CT, ultrasound, bone scan), vascular studies, neurologic studies, specialist consultation, and proceeding with surgical management, as appropriate.
[2018-04-30] MEDS ORDERED: TRANEXAMIC ACID IV.SIG SCH (09:00)
[2018-04-30] MEDS ORDERED: SODIUM CHLOR 0.9% IV.SIG SCH (09:00)
[2018-04-30] MEDS ORDERED: Influenza (Quadrivalent) Vaccine 0.5 ML Syringe IM ONE (09:00)
[2018-04-30] MEDS ORDERED: Sodium Chlor 0.9% Inj 250 ML IV.CONT ONE (09:33)
[2018-04-30] MEDS ORDERED: Glycopyrrolate Inj 1 MG/5 ML Syringe IV.PUSH ONE (09:33)
[2018-04-30] MEDS ORDERED: Lidocaine PF 1% Inj 5 ML Syringe OTHER ONE (09:33)
[2018-04-30] MEDS ORDERED: Succinylcholine Inj 100 MG/5 ML Syringe IV.PUSH ONE (09:33)
[2018-04-30] MEDS ORDERED: Neostigmine Inj 5 MG/5 ML Syringe IV.PUSH ONE (09:33)
[2018-04-30] MEDS ORDERED: Bupivacaine/Epinephrine Inj 0.25% 50 ML Vial ONE (10:09)
[2018-04-30] MEDS ORDERED: Morphine Inj 4 MG/ML Vial IV.PUSH PRN (10:31)
[2018-04-30] MEDS ORDERED: Post-op Orders (for Pharmacy) OTHER STA (10:31)
--- NOTE | 2018-04-30 10:37 | P.OP ---
- Preoperative Diagnosis (1) Fracture of femoral neck, right, closed Date of procedure: 04/30/18 Procedure: Right hip pinning Anesthesia: GETA Surgeon: Casey Henley MD Furnace Attendant: WAGNER Caban PA-C The surgical procedure was assisted by my physician human resources office assistant. My P.A. presence was necessary throughout this case for the manipulation and positioning of the surgical extremity. My P.A. was assisting me throughout the duration of this procedure. The skill set of a physician human resources office assistant was medically necessary to complete this procedure. During the surgical case the surgical dressing maker was working at the back table and the physician human resources office assistant was directly assisting me. Operation and Findings: Implants used: AAP 7.5 mm cannulated screws Plan of activity: TTWB Patient was seen and evaluated preoperatively. The patient has significant hip pain from right femoral neck fracture. The risk and benefits of surgery were discussed in depth with the patient to include bleeding infection nonunion malunion, avascular necrosis and need for hip replacement painful hardware as well as medical competitions including but not stroke heart attack and . Informed consent was obtained. Operative site was marked. Patient was brought to the operating room and placed on fracture table. IV sedation was administered by anesthesiologist. Timeout procedure was performed. Hip and leg were prepped with alcohol followed by Hibiclens and draped in the usual sterile fashion. IV antibiotics were given prior to incision. Procedure began with evaluation of fracture under fluoroscopy. Leg was gently manipulated to improve alignment. Excellent reduction was achieved. Fluoroscopy was used to confirm reduction. A three cm incision was along the lateral aspect of the proximal femur . Subcutaneous tissue was dissected bluntly. Three guidepins were placed through the lateral cortex of the proximal femur. Guide pins were placed in an inverted triangle position. Guide pins were advanced across the fracture site into the femoral head. Fluoroscopy confirmed appropriate guidepin placement. The screw lengths were measured. A cannulated drill was placed over each of the guide pins. Appropriate length cannulated screws were placed over the guidepins. Good compression was applied across the fracture. Final fluoroscopy revealed well aligned fracture with well-placed hardware. Incision was closed with 3-0 Vicryl and jannet. Sterile dressings were applied. Patient was awakened and transferred to recovery room.
--- NOTE | 2018-04-30 10:49 | P.PNOP ---
Subjective Interval history: POD 0 s/p Percutaneous pinning of right hip stable in pacu Physical Exam Vital signs: Vital Signs 04/29/18 16:08 04/29/18 16:22 04/29/18 18:17 Temperature 98.1 F Pulse Rate 75 75 Respiratory Rate 13 19 Blood Pressure 147/73 H 154/76 H Pulse Oximetry 100 99 98 04/29/18 18:54 04/29/18 20:00 04/29/18 20:32 Temperature 99.5 F 98.7 F Pulse Rate 93 H 93 H Respiratory Rate 18 20 20 Blood Pressure 182/86 H 164/82 H Pulse Oximetry 100 96 04/30/18 00:00 04/30/18 00:30 04/30/18 04:00 Temperature 98.6 F 98.9 F Pulse Rate 85 97 H Respiratory Rate 20 17 20 Blood Pressure 158/86 H 171/82 H Pulse Oximetry 96 97 04/30/18 08:00 Temperature 98.7 F Pulse Rate 74 Respiratory Rate 20 Blood Pressure 175/86 H Pulse Oximetry 98 Intake & Output 04/29/18 04/30/18 04/30/18 18:59 06:59 18:59 Intake Total 1000 / 1000 0 / 0 Output Total 1999 Balance 1000 / 1000 -1999 Weight 92.986 kg 93 kg Intake: IV 1000 / 1000 NS Inj 1,000 ML @ Wide Open IV. 1000 / 1000 SIG BOLUS ONE Rx#:[id number] Oral 0 / 0 Output: Urine 1999 Other: Date of Last Bowel Movement 04/28/18 Weight On Admission 92.986 kg Narrative: RLE: dressing clean and dry. intact. nvi Results - Labs CBC & Chem 7: 04/30/18 04:15 04/30/18 04:15 Laboratory Results - last 24 hr 04/29/18 04/29/18 04/29/18 16:15 16:15 16:15 WBC 7.8 RBC 4.27 L Hgb 14.1 Hct 40.5 MCV 94.7 MCH 33.0 MCHC 34.8 RDW 14.1 Plt Count 284 MPV 7.5 Neut % (Auto) 52.8 Lymph % (Auto) 31.6 [place] % (Auto) 12.4 H Eos % (Auto) 2.1 Baso % (Auto) 1.1 Neut # (Auto) 4.1 Lymph # (Auto) 2.5 [place] # (Auto) 1.0 H Eos # (Auto) 0.2 Baso # (Auto) 0.1 WBC Differential . Differential Comment Auto diff final PT 10.4 INR 1.0 Sodium 141 Potassium 3.7 Chloride 106 Carbon Dioxide 26.1 Anion Gap 9 BUN 13 Creatinine 1.65 H Estimated GFR 43 L Random Glucose 109 H Calcium 8.3 L Total Bilirubin AST ALT Alkaline Phosphatase Troponin I Less than 0.02 L Total Protein Albumin Serum Alcohol 04/29/18 04/30/18 04/30/18 16:15 04:15 04:15 WBC 9.1 RBC 4.13 L Hgb 13.3 Hct 39.3 MCV 95.1 MCH 32.2 MCHC 33.9 RDW 14.0 Plt Count 231 MPV 7.4 Neut % (Auto) 64.5 Lymph % (Auto) 22.0 [place] % (Auto) 11.9 H Eos % (Auto) 0.9 Baso % (Auto) 0.7 Neut # (Auto) 5.9 Lymph # (Auto) 2.0 [place] # (Auto) 1.1 H Eos # (Auto) 0.1 Baso # (Auto) 0.1 WBC Differential . Differential Comment Auto diff final PT INR Sodium 144 Potassium 3.8 Chloride 109 H Carbon Dioxide 24.9 Anion Gap 10 BUN 11 Creatinine 1.21 Estimated GFR 61 L Random Glucose 93 Calcium 8.5 Total Bilirubin 0.5 AST 27 ALT 25 Alkaline Phosphatase 54 Troponin I Total Protein 6.4 Albumin 3.3 L Serum Alcohol 153 H - Imaging Impressions Head CT 04/29/18 16:09 CONCLUSION: 1. No acute intracranial abnormality. 2. 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 . Hip X-Ray 04/29/18 16:10 CONCLUSION: Subcapital fracture of the right hip Assessment and Plan - Assessment and Plan 1) Right Femoral Neck Fx s/p Perc Pinning - POD 0 Physical therapy--toe-touch weightbearing SCDs/NORRIS hose/Lovenox Case management consult for discharge planning--home versus SNF scripts on chart f/u with Jerry or SHELLY in 2 weeks E-FORCSE Prescription Drug Monitoring Database has been queried and verified prior to prescribing the controlled substance. Acute pain exception. This patient has normal, predicted, physiological, and time limited response to an adverse mechanical stimulus associated with surgery, trauma, or acute illness as described in my notes. There is a lack of alternative treatment options other than to include the prescribed narcotic treatment for this condition.
[2018-04-30] MEDS ORDERED: *morphine SULFATE 4 MG/ML PERIprocedure ONLY ONE (11:03)
--- NOTE | 2018-04-30 11:33 | XR ---
EXAM DATE: 04/30/2018 11:14 AM EDT AGE/SEX: 58 years / Male INDICATIONS: Hip pinning. CLINICAL DATA: This is the patient's initial encounter. Patient reports that signs and symptoms have been present for 1 day and indicates a pain score of Nonresponsive. MEDICAL/SURGICAL HISTORY: None. None. COMPARISON: No prior exams available for comparison. FINDINGS: Spot films reveal triple lag screw fixation across a femoral neck fracture with near-anatomic alignme nt. CONCLUSION: Right hip fixation as above. Electronically signed by: Brock Escobar MD 04/30/2018 11:32 AM EDT
[2018-04-30] MEDS: Calcium/Vitamin D 250/125 MG Tablet PO SCH ×2 (12:43→17:40)
[2018-04-30] MEDS ORDERED: fentaNYL Citrate Inj 100 MCG/2 ML Ampul ONE (13:58)
--- NOTE | 2018-04-30 14:14 | P.PN ---
Subjective Interval history: Follow-up right hip fracture April 30, 2018-patient seen and examined, he is status post Right hip pinning. by the bedside Physical Exam Vital signs: Vital Signs 04/29/18 16:08 04/29/18 16:22 04/29/18 18:17 Temperature 98.1 F Pulse Rate 75 75 Respiratory Rate 13 19 Blood Pressure 147/73 H 154/76 H Pulse Oximetry 100 99 98 04/29/18 18:54 04/29/18 20:00 04/29/18 20:32 Temperature 99.5 F 98.7 F Pulse Rate 93 H 93 H Respiratory Rate 18 20 20 Blood Pressure 182/86 H 164/82 H Pulse Oximetry 100 96 04/30/18 00:00 04/30/18 00:30 04/30/18 04:00 Temperature 98.6 F 98.9 F Pulse Rate 85 97 H Respiratory Rate 20 17 20 Blood Pressure 158/86 H 171/82 H Pulse Oximetry 96 97 04/30/18 08:00 04/30/18 10:50 04/30/18 11:00 Temperature 98.7 F 98.1 F Pulse Rate 74 90 78 Respiratory Rate 20 16 17 Blood Pressure 175/86 H 152/73 H Pulse Oximetry 98 98 98 04/30/18 11:15 04/30/18 11:30 04/30/18 11:45 Temperature 98.0 F Pulse Rate 72 67 70 Respiratory Rate 18 18 12 Blood Pressure 161/83 H 160/82 H 157/82 H Pulse Oximetry 98 98 99 04/30/18 12:00 Temperature 97.9 F Pulse Rate 69 Respiratory Rate 20 Blood Pressure 159/81 H Pulse Oximetry 96 Intake & Output 04/29/18 04/30/18 04/30/18 18:59 06:59 18:59 Intake Total 1000 / 1000 0 / 0 900 / 900 Output Total 1999 310 / 310 Balance 1000 / 1000 -1999 / -1999 590 / 590 Weight 92.986 kg 93 kg Intake: IV 1000 / 1000 NS Inj 1,000 ML @ Wide Open IV. 1000 / 1000 SIG BOLUS ONE Rx#:[id number] Oral 0 / 0 Anesthesia Amount 900 / 900 Output: Urine 1999 300 / 300 Estimated Blood Loss Other: Date of Last Bowel Movement 04/28/18 Weight On Admission 92.986 kg Narrative: GENERAL: SKIN: Warm and dry. HEAD: Atraumatic. Normocephalic. EYES: Pupils equal and round. No scleral icterus. No injection or drainage. ENT: No nasal bleeding or discharge. Mucous membranes pink and moist. NECK: Trachea midline. No JVD. CARDIOVASCULAR: Regular rate and rhythm. RESPIRATORY: No accessory muscle use. Clear to auscultation. Breath sounds equal bilaterally. GASTROINTESTINAL: Abdomen soft, non-tender, nondistended. Hepatic and splenic margins not palpable. MUSCULOSKELETAL: Extremities without clubbing, cyanosis, or edema. No obvious deformities. NEUROLOGICAL: Awake and alert. No obvious cranial nerve deficits. Motor grossly within normal limits. Five out of 5 muscle strength in the arms and legs. PSYCHIATRIC: Appropriate mood and affect; insight and judgment normal. RLE: dressing clean and dry. intact. nvi Results - Labs CBC & Chem 7: 04/30/18 04:15 04/30/18 04:15 Laboratory Results - last 24 hr 04/29/18 04/29/18 04/29/18 16:15 16:15 16:15 WBC 7.8 RBC 4.27 L Hgb 14.1 Hct 40.5 MCV 94.7 MCH 33.0 MCHC 34.8 RDW 14.1 Plt Count 284 MPV 7.5 Neut % (Auto) 52.8 Lymph % (Auto) 31.6 [place] % (Auto) 12.4 H Eos % (Auto) 2.1 Baso % (Auto) 1.1 Neut # (Auto) 4.1 Lymph # (Auto) 2.5 [place] # (Auto) 1.0 H Eos # (Auto) 0.2 Baso # (Auto) 0.1 WBC Differential . Differential Comment Auto diff final PT 10.4 INR 1.0 Sodium 141 Potassium 3.7 Chloride 106 Carbon Dioxide 26.1 Anion Gap 9 BUN 13 Creatinine 1.65 H Estimated GFR 43 L Random Glucose 109 H Calcium 8.3 L Total Bilirubin AST ALT Alkaline Phosphatase Troponin I Less than 0.02 L Total Protein Albumin Serum Alcohol 04/29/18 04/30/18 04/30/18 16:15 04:15 04:15 WBC 9.1 RBC 4.13 L Hgb 13.3 Hct 39.3 MCV 95.1 MCH 32.2 MCHC 33.9 RDW 14.0 Plt Count 231 MPV 7.4 Neut % (Auto) 64.5 Lymph % (Auto) 22.0 [place] % (Auto) 11.9 H Eos % (Auto) 0.9 Baso % (Auto) 0.7 Neut # (Auto) 5.9 Lymph # (Auto) 2.0 [place] # (Auto) 1.1 H Eos # (Auto) 0.1 Baso # (Auto) 0.1 WBC Differential . Differential Comment Auto diff final PT INR Sodium 144 Potassium 3.8 Chloride 109 H Carbon Dioxide 24.9 Anion Gap 10 BUN 11 Creatinine 1.21 Estimated GFR 61 L Random Glucose 93 Calcium 8.5 Total Bilirubin 0.5 AST 27 ALT 25 Alkaline Phosphatase 54 Troponin I Total Protein 6.4 Albumin 3.3 L Serum Alcohol 153 H - Imaging Impressions Head CT 04/29/18 16:09 CONCLUSION: 1. No acute intracranial abnormality. 2. 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 . Hip X-Ray 04/29/18 16:10 CONCLUSION: Subcapital fracture of the right hip Hip X-Ray 04/30/18 00:00 CONCLUSION: Right hip fixation as above. - Procedures Right hip pinning April 30, 2018 Assessment and Plan - Plan 58-year-old man with Right hip fracture Hip x-ray with finding of subcapital fracture of the right hip Orthopedic surgery has been consulted s/p Right hip pinning April 30, 2018 Pain management accordingly PT to eval and treat Mechanical fall Head CT without any intracranial abnormalities Place Fall precautions History of hypertension Continue Norvasc, beta-arik and hold HCTZ-lisinopril Acute renal injury Prerenal Resolved with IV fluid hydration, monitor BUN and creatinine History of CVA Chronic DVT prophylaxis: Lovenox
[2018-04-30] MEDS ORDERED: ceFAZolin Inj 1,000 MG in Sodium Chlor 0.9% Inj 100 ML IV.SIG SCH (18:00)
[2018-05-01] MEDS: ceFAZolin 1 GM Premix Inj 1 GM/50 ML FROZ.PIGGY IV.SIG SCH ×3 (00:32→09:59)
[2018-05-01 04:30] LABS: Baso % (Auto) 0.2 % (0.0-2.0); Hematocrit 39.5 % (39.0-51.0); Hemoglobin 13.5 gm/dL (13.0-17.0); Lymph # (Auto) 1.1 th/mm3 (1.0-4.8); Lymph % (Auto) 12.3 % (9.0-44.0); Mean Corpuscular HGB Conc 34.2 % (32.0-36.0); Mean Corpuscular Hemoglobin 32.4 pg (27.0-34.0); Mean Corpuscular Volume 94.8 fL (80.0-100.0); Mean Platelet Volume 7.3 fL (7.0-11.0); Mono # (Auto) 1.1 th/mm3 (0.0-0.9); Mono % (Auto) 11.9 % (0.0-8.0); Neut % (Auto) 75.6 % (16.0-70.0); Platelet Count 230 th/mm3 (150-450); Red Blood Count 4.17 mil/mm3 (4.50-5.90); Red Cell Distribution Width 13.7 % (11.6-17.2); White Blood Count 9.2 th/mm3 (4.0-11.0)
[2018-05-01 05:00] LABS: Albumin 3.3 g/dL (3.4-5.0); Anion Gap 8 meq/L (5-15); Aspartate Aminotransferase 17 U/L (15-37); Blood Urea Nitrogen 11 mg/dL (7-18); Calcium 8.8 mg/dL (8.5-10.1); Carbon Dioxide 27.6 meq/L (21.0-32.0); Chloride 103 meq/L (98-107); Glomerular Filtration Rate 60 mL/min (>89); Glucose,Random 112 mg/dL (74-106); Potassium 4.2 meq/L (3.5-5.1); Sodium 139 meq/L (136-145)
[2018-05-01 05:02] LABS: Alanine Aminotransferase 21 U/L (12-78)
[2018-05-01 05:04] LABS: Alkaline Phosphatase 63 U/L (45-117); Total Protein 7.2 g/dL (6.4-8.2)
[2018-05-01] MEDS ORDERED: Enoxaparin Inj 40 MG/0.4 ML Syringe SQ SCH (09:00)
[2018-05-01] MEDS: Metoprolol Tartrate 25 MG Tablet PO SCH ×2 (09:58→21:02)
[2018-05-01] MEDS: Calcium/Vitamin D 250/125 MG Tablet PO SCH ×3 (09:58→17:56)
[2018-05-01] MEDS: amLODIPine 5 MG Tablet PO SCH (09:58)
--- NOTE | 2018-05-01 10:04 | P.PNOP ---
Subjective Interval history: Patient is awake and alert. He states his pain is well controlled. Patient is self-pay and is considering home versus rehab placement. Dressing was severely saturated and discussion was had with the charge nurse. Physical Exam Vital signs: Vital Signs 04/30/18 10:50 04/30/18 11:00 04/30/18 11:15 Temperature 98.1 F Pulse Rate 90 78 72 Respiratory Rate 16 17 18 Blood Pressure 152/73 H 161/83 H Pulse Oximetry 98 98 98 04/30/18 11:30 04/30/18 11:45 04/30/18 12:00 Temperature 98.0 F 97.9 F Pulse Rate 67 70 69 Respiratory Rate 18 12 20 Blood Pressure 160/82 H 157/82 H 159/81 H Pulse Oximetry 98 99 96 04/30/18 16:00 04/30/18 20:00 05/01/18 00:00 Temperature 97.8 F 99.3 F 98.5 F Pulse Rate 80 89 65 Respiratory Rate 22 18 17 Blood Pressure 170/76 H 151/89 H 166/84 H Pulse Oximetry 99 97 96 05/01/18 04:00 05/01/18 08:00 Temperature 98.5 F 97.6 F Pulse Rate 73 69 Respiratory Rate 17 18 Blood Pressure 154/93 H 171/68 H Pulse Oximetry 97 98 Intake & Output 04/30/18 05/01/18 05/01/18 18:59 06:59 18:59 Intake Total 1240 / 1240 1283.95 / 1283.95 Output Total 1085 / 1085 950 / 950 Balance 155 / 155 333.95 / 333.95 Weight 96.6 kg Intake: IV 100 / 100 1163.95 / 1163.95 LR 1000 mL Inj 1,000 ML @ 70 1000 / 1000 mls/hr IV.CONT .[id number] ALEXI Rx# :[id number] Cyklokapron Inj 1,395 MG In NS 113.95 / 113.95 Inj 100 ML @ 200 mls/hr IV.SIG ONCE ALEXI Rx#:[id number] Ancef 1 GM Premix Inj 1 gm In 50 / 50 50 ml @ 200 mls/hr IV.SIG Q8H ALEXI Rx#:[id number] Ancef Inj 1,000 MG In NS Inj 100 / 100 100 ML @ 200 mls/hr IV.SIG Q8H ALEXI Rx#:[id number] Oral 240 / 240 120 / 120 Anesthesia Amount 900 / 900 Output: Urine 1075 / 1075 950 / 950 Estimated Blood Loss Other: Date of Last Bowel Movement 04/28/18 Narrative: RLE: dressing severely saturated. pt able to stand self up from chair to walker with limited w/b, no calf pain. nvi Results - Labs CBC & Chem 7: 05/01/18 04:14 05/01/18 04:14 Laboratory Results - last 24 hr 05/01/18 05/01/18 04:14 04:14 WBC 9.2 RBC 4.17 L Hgb 13.5 Hct 39.5 MCV 94.8 MCH 32.4 MCHC 34.2 RDW 13.7 Plt Count 230 MPV 7.3 Neut % (Auto) 75.6 H Lymph % (Auto) 12.3 [place] % (Auto) 11.9 H Eos % (Auto) 0.0 Baso % (Auto) 0.2 Neut # (Auto) 7.0 Lymph # (Auto) 1.1 [place] # (Auto) 1.1 H Eos # (Auto) 0.0 Baso # (Auto) 0.0 WBC Differential . Differential Comment Auto diff final Sodium 139 Potassium 4.2 Chloride 103 Carbon Dioxide 27.6 Anion Gap 8 BUN 11 Creatinine 1.24 Estimated GFR 60 L Random Glucose 112 H Calcium 8.8 Total Bilirubin 0.7 AST 17 ALT 21 Alkaline Phosphatase 63 Total Protein 7.2 D Albumin 3.3 L - Imaging Impressions Hip X-Ray 04/30/18 00:00 CONCLUSION: Right hip fixation as above. - Procedures Right hip pinning April 30, 2018 Dr Edwards Assessment and Plan - Assessment and Plan 1) Right Femoral Neck Fx s/p Perc Pinning - POD 1 Physical therapy--toe-touch weightbearing SCDs/NORRIS hose/Lovenox Case management consult for discharge planning--home versus SNF, pt is self pay scripts on chart f/u with Jerry or SHELLY in 2 weeks Clear for discharge from orthopedic standpoint E-FORCSE Prescription Drug Monitoring Database has been queried and verified prior to prescribing the controlled substance. Acute pain exception. This patient has normal, predicted, physiological, and time limited response to an adverse mechanical stimulus associated with surgery, trauma, or acute illness as described in my notes. There is a lack of alternative treatment options other than to include the prescribed narcotic treatment for this condition.
[2018-05-01] MEDS ORDERED: Sodium Chloride 0.9% 2 ML Flush PRN IV.FLUSH (10:23)
--- NOTE | 2018-05-01 12:07 | P.PN ---
Subjective Interval history: Follow-up right hip fracture April 30, 2018-patient seen and examined, he is status post Right hip pinning. by the bedside May 01, 2018-patient seen and examined, denies any significant lower extremity pain. Afebrile. BP trending up Physical Exam Vital signs: Vital Signs 04/30/18 16:00 04/30/18 20:00 05/01/18 00:00 Temperature 97.8 F 99.3 F 98.5 F Pulse Rate 80 89 65 Respiratory Rate 22 18 17 Blood Pressure 170/76 H 151/89 H 166/84 H Pulse Oximetry 99 97 96 05/01/18 04:00 05/01/18 08:00 Temperature 98.5 F 97.6 F Pulse Rate 73 69 Respiratory Rate 17 18 Blood Pressure 154/93 H 171/68 H Pulse Oximetry 97 98 Intake & Output 04/30/18 05/01/18 05/01/18 18:59 06:59 18:59 Intake Total 1240 / 1240 1283.95 / 1283.95 Output Total 1085 / 1085 950 / 950 Balance 155 / 155 333.95 / 333.95 Weight 96.6 kg Intake: IV 100 / 100 1163.95 / 1163.95 LR 1000 mL Inj 1,000 ML @ 70 1000 / 1000 mls/hr IV.CONT .[id number] ALEXI Rx# :[id number] Cyklokapron Inj 1,395 MG In NS 113.95 / 113.95 Inj 100 ML @ 200 mls/hr IV.SIG ONCE ALEXI Rx#:[id number] Ancef 1 GM Premix Inj 1 gm In 50 / 50 50 ml @ 200 mls/hr IV.SIG Q8H ALEXI Rx#:[id number] Ancef Inj 1,000 MG In NS Inj 100 / 100 100 ML @ 200 mls/hr IV.SIG Q8H ALEXI Rx#:[id number] Oral 240 / 240 120 / 120 Anesthesia Amount 900 / 900 Output: Urine 1075 / 1075 950 / 950 Estimated Blood Loss Other: Date of Last Bowel Movement 04/28/18 Narrative: GENERAL: NAD SKIN: Warm and dry. HEAD: Normocephalic. EYES: No scleral icterus. No injection or drainage. NECK: Supple, trachea midline. No JVD or lymphadenopathy. CARDIOVASCULAR: Regular rate and rhythm without murmurs, gallops, or rubs. RESPIRATORY: Breath sounds equal bilaterally. No accessory muscle use. GASTROINTESTINAL: Abdomen soft, non-tender, nondistended. MUSCULOSKELETAL: No cyanosis, or edema. RLE; inc c/d/i BACK: Nontender without obvious deformity. No CVA tenderness. Results - Labs CBC & Chem 7: 05/01/18 04:14 05/01/18 04:14 Laboratory Results - last 24 hr 05/01/18 05/01/18 04:14 04:14 WBC 9.2 RBC 4.17 L Hgb 13.5 Hct 39.5 MCV 94.8 MCH 32.4 MCHC 34.2 RDW 13.7 Plt Count 230 MPV 7.3 Neut % (Auto) 75.6 H Lymph % (Auto) 12.3 [place] % (Auto) 11.9 H Eos % (Auto) 0.0 Baso % (Auto) 0.2 Neut # (Auto) 7.0 Lymph # (Auto) 1.1 [place] # (Auto) 1.1 H Eos # (Auto) 0.0 Baso # (Auto) 0.0 WBC Differential . Differential Comment Auto diff final Sodium 139 Potassium 4.2 Chloride 103 Carbon Dioxide 27.6 Anion Gap 8 BUN 11 Creatinine 1.24 Estimated GFR 60 L Random Glucose 112 H Calcium 8.8 Total Bilirubin 0.7 AST 17 ALT 21 Alkaline Phosphatase 63 Total Protein 7.2 D Albumin 3.3 L - Procedures Right hip pinning April 30, 2018 Dr Edwards Assessment and Plan - Plan 58-year-old man with Right hip fracture Hip x-ray with finding of subcapital fracture of the right hip Orthopedic surgery has been consulted s/p Right hip pinning April 30, 2018 Pain management accordingly PT to eval and treat Mechanical fall Head CT without any intracranial abnormalities Place Fall precautions History of hypertension Continue Norvasc, beta-arik and resume HCTZ-lisinopril Acute renal injury Prerenal Resolved; s/p IV fluid hydration, monitor BUN and creatinine History of CVA Chronic DVT prophylaxis: Lovenox
[2018-05-01] MEDS: Enoxaparin Inj 40 MG/0.4 ML Syringe SQ SCH (13:48)
[2018-05-01] MEDS: hydroCHLOROthiazide 25 MG Tablet PO SCH (17:57)
[2018-05-01] MEDS: Sodium Chloride 0.9% 2 ML Flush BID IV.FLUSH SCH (21:03)
--- NOTE | 2018-05-02 08:36 | P.PNOP ---
Subjective Interval history: Patient awake and alert his pain is well controlled. He states that he feels very weak. He feels that he would benefit most from going to rehab upon discharge. Patient understands he is a self-pay and he states he can afford a week of rehab. Physical Exam Vital signs: Vital Signs 05/01/18 12:00 05/01/18 16:00 05/01/18 18:30 Temperature 98.4 F 98.2 F Pulse Rate 75 72 Respiratory Rate 16 18 Blood Pressure 159/81 H 174/76 H 150/66 H Pulse Oximetry 99 98 05/01/18 20:00 05/02/18 00:00 Temperature 98.6 F 98.6 F Pulse Rate 69 63 Respiratory Rate 17 17 Blood Pressure 157/71 H 138/67 Pulse Oximetry 98 97 Intake & Output 05/01/18 05/02/18 05/02/18 18:59 06:59 18:59 Intake Total 290 / 290 1160 / 1160 Output Total 1475 / 1475 Balance 290 / 290 -315 / -315 Weight 93.8 kg Intake: IV 50 / 50 Ancef 1 GM Premix Inj 1 gm In 50 / 50 50 ml @ 200 mls/hr IV.SIG Q8H ALEXI Rx#:[id number] Oral 240 / 240 1160 / 1160 Output: Urine 1475 / 1475 Other: # Voids 4 Date of Last Bowel Movement 04/28/18 04/28/18 Narrative: RLE: Dressing dry and intact. Tender to palpation with mild swelling around incision site. Appropriate range of motion expected post operatively. Freely able to move distal digits. No calf pain. Negative Foster's sign. Good cap refill. 2+ pedal pulses. Neurovascular intact. Results - Labs CBC & Chem 7: 05/01/18 04:14 05/01/18 04:14 - Procedures Right hip pinning April 30, 2018 Dr Edwards Assessment and Plan - Assessment and Plan 1) Right Femoral Neck Fx s/p Perc Pinning - POD #2 Physical therapy--toe-touch weightbearing SCDs/NORRIS hose/Lovenox Case management consult for discharge planning--home versus SNF, pt is self pay scripts on chart f/u with Jerry or SHELLY in 2 weeks Clear for discharge from orthopedic standpoint E-FORE Prescription Drug Monitoring Database has been queried and verified prior to prescribing the controlled substance. Acute pain exception. This patient has normal, predicted, physiological, and time limited response to an adverse mechanical stimulus associated with surgery, trauma, or acute illness as described in my notes. There is a lack of alternative treatment options other than to include the prescribed narcotic treatment for this condition.
[2018-05-02] MEDS: Calcium/Vitamin D 250/125 MG Tablet PO SCH ×3 (08:59→18:00)
[2018-05-02] MEDS: hydroCHLOROthiazide 25 MG Tablet PO SCH (08:59)
[2018-05-02] MEDS: Metoprolol Tartrate 25 MG Tablet PO SCH ×2 (08:59→20:53)
[2018-05-02] MEDS: Enoxaparin Inj 40 MG/0.4 ML Syringe SQ SCH (09:00)
[2018-05-02] MEDS: amLODIPine 5 MG Tablet PO SCH (09:00)
[2018-05-02] MEDS: Sodium Chloride 0.9% 2 ML Flush BID IV.FLUSH SCH ×2 (09:29→20:53)
--- NOTE | 2018-05-02 10:29 | P.PN ---
Subjective Interval history: Follow-up right hip fracture April 30, 2018-patient seen and examined, he is status post Right hip pinning. by the bedside May 01, 2018-patient seen and examined, denies any significant lower extremity pain. Afebrile. BP trending up May 02, 2018-patient seen and examined, doing well and looking for discharge to rehab. States he will pay out of his pocket Physical Exam Vital signs: Vital Signs 05/01/18 12:00 05/01/18 16:00 05/01/18 18:30 Temperature 98.4 F 98.2 F Pulse Rate 75 72 Respiratory Rate 16 18 Blood Pressure 159/81 H 174/76 H 150/66 H Pulse Oximetry 99 98 05/01/18 20:00 05/02/18 00:00 05/02/18 08:00 Temperature 98.6 F 98.6 F 98.1 F Pulse Rate 69 63 67 Respiratory Rate 17 17 16 Blood Pressure 157/71 H 138/67 146/68 H Pulse Oximetry 98 97 96 Intake & Output 05/01/18 05/02/18 05/02/18 18:59 06:59 18:59 Intake Total 290 / 290 1160 / 1160 Output Total 1475 / 1475 Balance 290 / 290 -315 / -315 Weight 93.8 kg Intake: IV 50 / 50 Ancef 1 GM Premix Inj 1 gm In 50 / 50 50 ml @ 200 mls/hr IV.SIG Q8H ALEXI Rx#:[id number] Oral 240 / 240 1160 / 1160 Output: Urine 1475 / 1475 Other: # Voids 4 Date of Last Bowel Movement 04/28/18 04/28/18 Narrative: GENERAL: NAD SKIN: Warm and dry. HEAD: Atraumatic. Normocephalic. EYES: Pupils equal and round. No scleral icterus. No injection or drainage. ENT: No nasal bleeding or discharge. Mucous membranes pink and moist. NECK: Trachea midline. No JVD. CARDIOVASCULAR: Regular rate and rhythm. RESPIRATORY: No accessory muscle use. Clear to auscultation. Breath sounds equal bilaterally. GASTROINTESTINAL: Abdomen soft, non-tender, nondistended. Hepatic and splenic margins not palpable. MUSCULOSKELETAL: Extremities without clubbing, cyanosis, or edema. No obvious deformities. NEUROLOGICAL: Awake and alert. No obvious cranial nerve deficits. Motor grossly within normal limits. Five out of 5 muscle strength in the arms and legs. PSYCHIATRIC: Appropriate mood and affect; insight and judgment normal. Results - Labs CBC & Chem 7: 05/01/18 04:14 05/01/18 04:14 - Procedures Right hip pinning April 30, 2018 Dr Edwards Assessment and Plan - Plan 58-year-old man with Right hip fracture Hip x-ray with finding of subcapital fracture of the right hip Management per orthopedic surgery, s/p Right hip pinning April 30, 2018 Pain management accordingly PT to eval and treat Patient has been clear for discharge by orthopedic surgery May 02, [address] without any intracranial abnormalities Place Fall precautions History of hypertension Continue Norvasc, beta-arik and HCTZ-lisinopril Acute renal injury Prerenal Resolved; s/p IV fluid hydration, monitor BUN and creatinine History of CVA Chronic DVT prophylaxis: Lovenox
--- NOTE | 2018-05-02 10:35 | P.DS ---
Date of admission: 04/29/18 17:42 Primary care physician: No Primary Care Physician Brief History from admission: 58-year-old man with a past medical history of hypertension, CVA with residual speech difficulties was brought to the ED by EMS for evaluation of right status post mechanical falls x2, which happened a local restaurant today. Patient states, he has gone out to eat and while in a restaurant decided to walk to the bathroom when his leg slipped out from under him and he fell onto his right hip. The pain at a time was rated over 4 in intensity however patient was able to get back to his seat and proceeded with lunch which lasted over one hour and a half. However as patient was getting ready to step out against slipped and fallen on his right side. For atrial dose for patient denies any head trauma or loss of consciousness. When patient was brought to the ED, and AP x-rays order from subcapital fracture of the right hip for which orthopedic surgery has been consulted. Abnormal lab include alcohol of 153, however patient denies any significant history of alcohol abuse. Creatinine slightly elevated to 1.65. Otherwise patient denies any chest pain or shortness of breath. He has no GI bleed. DS: Medications - Discharge Medications Prescriptions: hydrocodone-acetaminophen [Hercules] 1 tab PO Q4H #40 tab rivaroxaban [Xarelto] 10 mg PO DAILY #14 tab DS: Summary Hospital Course: Patient admitted with right hip fracture for which orthopedic surgery was consulted and he underwent Right hip pinning on April 30, 2018. Postoperatively DVT prophylaxis was initiated with Lovenox and physical therapy was consulted. Pain management was provided accordingly. Patient medication for other chronic medical condition including hypertension we will resume accordingly and blood pressures monitor throughout hospitalization. Acute renal injury improved with IV fluid hydration. Prior to discharge, patient's conditions improved and vitals remained stable. He Will be discharged on Xarelto for DVT prophylaxis. - Time Spent with Patient Total time spent providing and/or coordinating discharge services: Greater than 30 minutes - Quality: VTE Deep Vein Thrombosis/Pulmonary Embolism Present on Admission: No Exam Vital signs: Vital Signs 05/01/18 12:00 05/01/18 16:00 05/01/18 18:30 Temperature 98.4 F 98.2 F Pulse Rate 75 72 Respiratory Rate 16 18 Blood Pressure 159/81 H 174/76 H 150/66 H Pulse Oximetry 99 98 05/01/18 20:00 05/02/18 00:00 05/02/18 08:00 Temperature 98.6 F 98.6 F 98.1 F Pulse Rate 69 63 67 Respiratory Rate 17 17 16 Blood Pressure 157/71 H 138/67 146/68 H Pulse Oximetry 98 97 96 Intake & Output 05/01/18 05/02/18 05/02/18 18:59 06:59 18:59 Intake Total 290 / 290 1160 / 1160 Output Total 1475 / 1475 Balance 290 / 290 -315 / -315 Weight 93.8 kg Intake: IV 50 / 50 Ancef 1 GM Premix Inj 1 gm In 50 / 50 50 ml @ 200 mls/hr IV.SIG Q8H ALEXI Rx#:[id number] Oral 240 / 240 1160 / 1160 Output: Urine 1475 / 1475 Other: # Voids 4 Date of Last Bowel Movement 04/28/18 04/28/18 Narrative: GENERAL: NAD SKIN: Warm and dry. HEAD: Atraumatic. Normocephalic. EYES: Pupils equal and round. No scleral icterus. No injection or drainage. ENT: No nasal bleeding or discharge. Mucous membranes pink and moist. NECK: Trachea midline. No JVD. CARDIOVASCULAR: Regular rate and rhythm. RESPIRATORY: No accessory muscle use. Clear to auscultation. Breath sounds equal bilaterally. GASTROINTESTINAL: Abdomen soft, non-tender, nondistended. Hepatic and splenic margins not palpable. MUSCULOSKELETAL: Extremities without clubbing, cyanosis, or edema. No obvious deformities. RLE: Dressing dry and intact. Tender to palpation with mild swelling around incision site. Appropriate range of motion expected post operatively. Freely able to move distal digits. No calf pain. Negative Foster's sign. Good cap refill. 2+ pedal pulses. Neurovascular intact. NEUROLOGICAL: Awake and alert. No obvious cranial nerve deficits. Motor grossly within normal limits. PSYCHIATRIC: Appropriate mood and affect; insight and judgment normal. Results Procedures completed during hospitalization: Right hip pinning April 30, 2018 Dr Edwards - Impressions ITS Impressions Head CT 04/29/18 16:09 CONCLUSION: 1. No acute intracranial abnormality. 2. 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 . Hip X-Ray 04/30/18 00:00 CONCLUSION: Right hip fixation as above. Discharge Plan - Discharge Disposition Patient Disposition: 03 Discharge to SNF - Discharge Condition Condition: Good - Discharge Order Discharge Orders: Discharge Order (Routine); Ordered 05/02/18 Ordered By: Raji Issa - Physicians Team Primary Care Provider: Primary Care Lea Bajwa Attending Provider: Raji Issa Other Providers: Angy Hill MD ; Casey Edwards MD
[2018-05-03 09:17] VITALS: BP 155/72; PULSE 68; RESP 18; TEMP 98.3; O2SAT 95
--- NOTE | 2018-05-03 09:18 | P.PN ---
Subjective Interval history: Follow-up right hip fracture April 30, 2018-patient seen and examined, he is status post Right hip pinning. by the bedside May 01, 2018-patient seen and examined, denies any significant lower extremity pain. Afebrile. BP trending up May 02, 2018-patient seen and examined, doing well and looking for discharge to rehab. States he will pay out of his pocket May 03, 2018-patient seen and examined, no complaint this a.m. and looking for discharge to rehab today. Physical Exam Vital signs: Vital Signs 05/02/18 12:00 05/02/18 16:00 05/02/18 20:00 Temperature 98.9 F 98.3 F 98.5 F Pulse Rate 72 68 76 Respiratory Rate 16 16 18 Blood Pressure 129/69 154/72 H 167/64 H Pulse Oximetry 99 96 98 05/03/18 00:00 Temperature 99.0 F Pulse Rate 65 Respiratory Rate 17 Blood Pressure 133/67 Pulse Oximetry 96 Intake & Output 05/02/18 05/03/18 05/03/18 18:59 06:59 18:59 Intake Total 1220 / 1220 Output Total 1375 / 1375 Balance -155 / -155 Weight 94.2 kg Intake: Oral 1220 / 1220 Output: Urine 1375 / 1375 Other: # Voids 4 Date of Last Bowel Movement 04/28/18 04/28/18 # Bowel Movements 1 Narrative: GENERAL: NAD SKIN: Warm and dry. HEAD: Atraumatic. Normocephalic. EYES: Pupils equal and round. No scleral icterus. No injection or drainage. ENT: No nasal bleeding or discharge. Mucous membranes pink and moist. NECK: Trachea midline. No JVD. CARDIOVASCULAR: Regular rate and rhythm. RESPIRATORY: No accessory muscle use. Clear to auscultation. Breath sounds equal bilaterally. GASTROINTESTINAL: Abdomen soft, non-tender, nondistended. Hepatic and splenic margins not palpable. MUSCULOSKELETAL: Extremities without clubbing, cyanosis, or edema. No obvious deformities. RLE: Dressing dry and intact. Tender to palpation with mild swelling around incision site. Appropriate range of motion expected post operatively. Freely able to move distal digits. No calf pain. Negative Foster's sign. Good cap refill. 2+ pedal pulses. Neurovascular intact. NEUROLOGICAL: Awake and alert. No obvious cranial nerve deficits. Motor grossly within normal limits. PSYCHIATRIC: Appropriate mood and affect; insight and judgment normal. Results - Labs CBC & Chem 7: 05/01/18 04:14 05/01/18 04:14 - Procedures Right hip pinning April 30, 2018 Dr Edwards Assessment and Plan - Plan 58-year-old man with Right hip fracture Hip x-ray with finding of subcapital fracture of the right hip Management per orthopedic surgery, s/p Right hip pinning April 30, 2018 Pain management accordingly PT to eval and treat Patient has been clear for discharge by orthopedic surgery on May 02, [address] without any intracranial abnormalities Place Fall precautions History of hypertension Continue Norvasc, beta-arik and HCTZ-lisinopril Acute renal injury Prerenal Resolved; s/p IV fluid hydration, monitor BUN and creatinine History of CVA Chronic DVT prophylaxis: Lovenox. Xarelto written for DVT prophylaxis on discharge
[2018-05-03] MEDS: Enoxaparin Inj 40 MG/0.4 ML Syringe SQ SCH (09:45)
[2018-05-03] MEDS: amLODIPine 5 MG Tablet PO SCH (09:45)
[2018-05-03] MEDS: Calcium/Vitamin D 250/125 MG Tablet PO SCH (09:45)
[2018-05-03] MEDS: Metoprolol Tartrate 25 MG Tablet PO SCH (09:45)
[2018-05-03] MEDS: hydroCHLOROthiazide 25 MG Tablet PO SCH (09:45)
[2018-05-03] MEDS: Sodium Chloride 0.9% 2 ML Flush BID IV.FLUSH SCH (09:51)
--- NOTE | 2018-05-03 14:44 | ECG ---
Date Performed: 04/29/2018 Time Performed: 16:11:18 PTAGE: 58 years EKG: Sinus rhythm NORMAL ECG NO PREVIOUS TRACING DOCTOR: Jose G Solorio Interpretating Date/Time 05/03/2018 14:42:54
== END 2018-05-03 10:38 ==
LOC: NEPE 15:55 → NEDA 17:42 → N06 18:25
PROVIDERS: ADMIT Hospitalist; ATTEND Hospitalist